=== PATIENT | male | born 1950 | race Caucasian/White ===

== ENCOUNTER 2016-10-20 18:04 | Emergency (ER) | payer OTHER ==
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
[2016-10-20] MEDS ORDERED: IOPAMIDOL (ISOVUE-300) 100 ML BTL IV ONE (18:24)
[2016-10-20] MEDS ORDERED: LETS SOLN TOPICAL 1 EA SYR TP ONE (19:33)
[2016-10-20] MEDS ORDERED: KETOROLAC 15 MG/1 ML SDV IVP ONE (19:36)
[2016-10-20] MEDS ORDERED: HYDROCOD/APAP 5/325 PREPACK#6 BTL TAKEHOME ONE (21:34)
[2016-10-20 22:17] VITALS: BP 130/91; PULSE 90; RESP 20; TEMP 97; O2SAT 93
== END 2016-10-20 22:32 | disposition home or self-care (01) ==
DX: S09.90XA Unspecified injury of head, initial encounter (principal); I10 Essential (primary) hypertension; F17.200 Nicotine dependence, unspecified, uncomplicated; Z79.82 Long term (current) use of aspirin; V49.88XA Car occupant (driver) (passenger) injured in other specified transport accidents, initial encounter; Y92.410 Unspecified street and highway as the place of occurrence of the external cause
CPT/HCPCS: 82947-QW; 96374; J1885; Q9967